=== PATIENT | female | born 1970 | race Two or more races ===

== ENCOUNTER 2016-12-26 05:17 | Day surgery (SDC) | payer BC ==
[2016-12-25 10:11] VITALS: BMI 45.2
[~2016-12-26] VITALS: Ht 142.2 cm; Wt 104.5 kg
[2016-12-26] VITALS (38 sets, daily range): BP systolic 117–197; BP diastolic 63–111; PULSE 80–107; RESP 14–26; Ht 142.2 cm; Wt 104.5 kg
[2016-12-26] MEDS ORDERED: CLINDAMYCIN 600 MG/D5W (PMX) 50 ML IVPB ONE (05:30)
[2016-12-26] MEDS ORDERED: SOD CHLORIDE 0.9% 1,000 ML IV SCH (05:30)
[2016-12-26] MEDS ORDERED: BUPIVACAINE 0.25% (MPF) 30 ML INJ ONE (06:51)
[2016-12-26] MEDS ORDERED: ROCURONIUM 50 MG INJ ONE ×2 (07:00→09:07)
[2016-12-26] MEDS ORDERED: FENTAnyl 50 MCG/ML VIAL ONE (07:29)
[2016-12-26] MEDS ORDERED: MIDAZOLAM 1 MG/ML 2 ML INJ ONE (07:29)
[2016-12-26] MEDS ORDERED: POLYMYXIN/BACITRACIN 1L IRRIG IRR ONE (07:54)
[2016-12-26] MEDS ORDERED: BUPIVACAINE 0.25% (MPF) 30 ML INJ INJ ONE (07:54)
[2016-12-26] MEDS ORDERED: POLYMYXIN/BACITRACIN 1L IRRIG ONE (07:55)
[2016-12-26] MEDS ORDERED: morphine 10 MG INJ ONE (08:20)
[2016-12-26] MEDS ORDERED: MEPERIDINE 25 MG INJ IV PRN (08:30)
[2016-12-26] MEDS ORDERED: morphine (1 MG/ML) 10ML SYRINGE IV PRN (08:30)
[2016-12-26] MEDS ORDERED: ONDANSETRON 4 MG INJ IV PRN (08:30)
[2016-12-26] MEDS ORDERED: DIPHENHYDRAMINE 50 MG INJ IV PRN (08:30)
[2016-12-26] MEDS ORDERED: FENTAnyl 50 MCG/ML VIAL IV PRN (08:30)
[2016-12-26] MEDS ORDERED: ONDANSETRON 4 MG INJ ONE (09:06)
[2016-12-26] MEDS ORDERED: LIDOCAINE 2% (SDV) 5 ML INJ ONE (09:07)
[2016-12-26] MEDS ORDERED: GLYCOPYRROLATE 0.4 MG INJ ONE (09:07)
[2016-12-26] MEDS ORDERED: NEOSTIGMINE 3 MG/3 ML SYRINGE ONE (09:07)
[2016-12-26] MEDS ORDERED: PROPOFOL 20 ML ONE (09:07)
--- NOTE | 2016-12-26 09:28 | RADRPT ---
PROCEDURE: XR Abdomen. CLINICAL INDICATION: INSTRUMENT COUNT TECHNIQUE: AP abdomen x-ray. COMPARISON: None. FINDINGS: There is a nonobstructive bowel gas pattern. There are no abnormal calcifications overlying the urinary tracts. Vertical skin rose are noted to the left of midline in the lower abdomen. There are surgical clips in the right upper abdominal quadrant consistent with cholecystectomy. There is a 3 mm linear opacity below the edge of the liver which is likely a dropped from the cholec ystectomy. IMPRESSION: Skin rose in the left lower abdominal quadrant. Status post cholecystectomy. No other foreign bodies are identified, as above. RPTAT: EE Physician Fernando Date Time Electronically viewed and signed by Physician Fernando on 12/26/2016 09:28 /
[2016-12-26] MEDS ORDERED: HYDROCODONE/APAP (5/325) TAB PO ONE (09:30)
--- NOTE | 2016-12-26 10:43 | OPR ---
DATE OF OPERATION: 12/26/2016 INDICATION: This is a 46-year-old female with a very large incarcerated ventral hernia. She requests surgical repair. Risks, alternatives, benefits, and personnel were discussed with patient. The patient expressed understanding and consents to the operation. PREOPERATIVE DIAGNOSIS: Large incarcerated ventral hernia. POSTOPERATIVE DIAGNOSIS: Large incarcerated ventral hernia. OPERATION PERFORMED: 1. Laparoscopic incarcerated ventral hernia repair, CPT code 10468, with partial open incision. 2. [place]aroscopic [place] [address]. 3. Doppler examination of the mesenteric vessels. 4. Recreation of umbilicus 5. Therapeutic injection of subcutaneously with marcaine CPT 41693 SURGEON: Nieves Kauffman MD SPECIMEN: Hernia sac contents. COMPLICATIONS: None. ANESTHESIA: General. PROCEDURE: The patient was taken to the OR and prepped and draped in usual sterile fashion. Surgical timeout was performed. IV antibiotics were given. Left upper quadrant 5 mm incision was made transversely with a 15 blade. Using a 5 mm optical trocar, optical entry was performed. Pneumoperitoneum was established. Left flank 12 mm optical trocar and left lower quadrant 5 mm optical trocars were placed under direct visualization. Upon initial inspection , there was a very large incarcerated hernia. This was attempted to reduce laparoscopically. However, the fixation points were so fixed and difficult, that it was difficult to further reduce the contents. A small incision was made around the umbilicus. This was used to dissect out the hernia sac contents. There was some consideration of the bowel as there was some chronic compromise of blood flow. Mesenteric vessels were examined with Doppler flow. There was good pulsatile Doppler flow to all regions and are viable. Hence, no bowel resection was performed. The fascial edges were freshened and were closed with a #1 looped PDS from superior to inferior and inferior to superior and tied down. The surgical site was irrigated. The umbilicus was recreated using interrupted 3-0 Vicryl as a fixation point to the abdominal anterior wall. The skin was closed using skin rose. The procedure was then converted back to the laparoscopic portion. The underlay mesh was implanted using SecureStrap with 15 x [address] mesh. There is coverage in all directions with approximately 5 to 6 cm of coverage. There was good hemostasis. Ports were removed under direct visualization. All skin sites were closed with skin rose. Local anesthesia was injected. Dry dressings were applied. Dictated By: NIEVES WALSH/FLAKITA Conf#: [id number] DID#: [id number]
== END 2016-12-26 15:01 | disposition home or self-care (01) ==
LOC: SDS 05:17 → EDSTATUS 09:00 → SDS 15:01
PROVIDERS: ATTEND Surgery
DX: K43.6 Other and unspecified ventral hernia with obstruction, without gangrene (principal); E66.9 Obesity, unspecified; Z68.31 Body mass index [BMI] 31.0-31.9, adult
CPT/HCPCS: 49653; 74000; 84703; 88302; 94660; C1781; J2250; J2270; J2710; J3010; Z7512; Z7610; J2405